=== PATIENT | male | born 1990 | race Caucasian/White ===

== ENCOUNTER 2017-09-24 17:52 | Emergency (ER) | payer OTHER ==
[2017-09-24 18:02] VITALS: O2SAT 98
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
[2017-09-24] MEDS ORDERED: CLINDAMYCIN 150 MG CAP PO ONE (19:17)
[2017-09-24] MEDS ORDERED: LORazepam 1 MG TAB PO ONE (19:17)
[2017-09-24 19:35] VITALS: BP 146/92; PULSE 61; RESP 15; TEMP 98.4
== END 2017-09-24 19:34 | disposition home or self-care (01) ==
DX: K00.7 Teething syndrome (principal); K05.10 Chronic gingivitis, plaque induced; K02.9 Dental caries, unspecified; Z87.891 Personal history of nicotine dependence

== ENCOUNTER → 2017-12-31 | Outpatient (CLI) | payer MEDICAID ==
[~2017-12-31] MED LIST: GADOBUTROL 10 ML VIAL IVP ONE
== END ==
LOC: FIMAGING 06:41
PROVIDERS: ATTEND Family Medicine
DX: R51 Headache (principal); H53.9 Unspecified visual disturbance
CPT/HCPCS: A9585

== ENCOUNTER 2018-01-17 11:16 | Emergency (ER) | payer MEDICAID ==
[2018-01-17 12:25] VITALS: BP 112/70
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
== END 2018-01-17 12:30 | disposition home or self-care (01) ==
DX: R20.2 Paresthesia of skin (principal); F17.200 Nicotine dependence, unspecified, uncomplicated; Z79.82 Long term (current) use of aspirin

== ENCOUNTER → 2018-03-12 | Outpatient (CLI) | payer MEDICAID | LOC: FIMAGING 10:48 | PROVIDERS: ATTEND Family Medicine | DX: M54.2 Cervicalgia (principal); G43.109 Migraine with aura, not intractable, without status migrainosus; H93.19 Tinnitus, unspecified ear ==

== ENCOUNTER 2018-07-12 15:08 | Emergency (ER) | payer MEDICAID ==
[2018-07-12 15:29] VITALS: BP 131/80
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
== END 2018-07-12 16:15 | disposition home or self-care (01) ==
DX: S09.90XA Unspecified injury of head, initial encounter (principal); S63.8X2A Sprain of other part of left wrist and hand, initial encounter; V00.131A Fall from skateboard, initial encounter; Y93.51 Activity, roller skating (inline) and skateboarding; Y92.838 Other recreation area as the place of occurrence of the external cause; Y99.8 Other external cause status; F17.200 Nicotine dependence, unspecified, uncomplicated
CPT/HCPCS: L3984